=== PATIENT | female | born 1990 | race Caucasian/White ===

== ENCOUNTER 2016-09-03 15:24 | Emergency (ER) | payer OTHER ==
[~2016-09-03] VITALS: Ht 152.4 cm; Wt 54.4 kg
[2016-09-03] MEDS ORDERED: LEVETIRACETAM IV 1,000 MG in IV DEXTROSE 5% 100 ML IV ONE (15:45)
[2016-09-03 16:01] LABS: CREATININE 0.8 mg/dL (0.6-1.3); POTASSIUM 3.8 mmol/L (3.5-5.1)
[2016-09-03 16:22] LABS: *URINE HCG, QUAL NEGATIVE (NEGATIVE)
[2016-09-03] MEDS ORDERED: LORAZEPAM 2 MG/1 ML VIAL ONE (16:31)
[2016-09-03] MEDS ORDERED: ACETAMINOPHEN 325 MG TABLET PO ONE (17:00)
[2016-09-03] MEDS ORDERED: ACETAMINOPHEN ES 500 MG TABLET ONE (17:11)
[2016-09-03] MEDS ORDERED: LORAZEPAM 2 MG/1 ML VIAL IV ONE (17:30)
--- NOTE | 2016-09-03 17:33 | NUR ---
IV removed. Catheter intact and site benign. Pressure and 4x4 gauze applied to site. No bleeding noted.
--- NOTE | 2016-09-03 17:34 | NUR ---
Patient discharged to home in stable conditon with family. Written and verbal after care instructions given. Patient verbalizes understanding of instructions. Stressed follow up with pmd/neurologist.
[2016-09-03 17:35] VITALS: BP 110/67
--- NOTE | 2016-09-03 17:55 | NUR ---
Ativan 2mg IV was pulled and kept on standy by per Dr Jackson order, medication was not admin and was wasted. Unable to waste in Pyxis because pt was already departed. Waste was witnessed by Jerry CASE and Bette CASE.
--- NOTE | 2016-09-03 17:55 | NUR ---
PHARMACY NOTE: I AHMET ALEXANDER RN WASTE 2MG OF ATIVAN. UNABLE TO DOCUMENT WASTE ON THE PYXIS BECAUSE PT WAS ALREADY DISCHARGED AND NOT IN THE PYXIS ANY MORE.
== END 2016-09-03 17:36 | disposition home or self-care (01) ==
LOC: ER 15:24
DX: R56.9 Unspecified convulsions (principal); Z88.0 Allergy status to penicillin
CPT/HCPCS: 36415; 80048; 84703; 93005; 96365; 99285; A4663; J1953; J2060; J7060